=== PATIENT | male | born 1950 ===

== ENCOUNTER 2024-08-17 08:29 | Outpatient (AMB) | payer MEDICARE, OTHER, SELFPAY ==
--- OUTSIDE RECORDS SUMMARY | 2024-08-17 08:39 | XMS_ITS ---
Author Organization [facility] Address [address] [place] [address] Care Team Providers Care Ict Security Specialist Name Role Phone David Escalante Primary Care Provider Unavailab Anival Jeff Unavailable [phone] Arianna Morris Unavailable [phone] Allergies Allergen (clinical drug ingredient) Drug/Non Drug Allergy documented on EMR Reaction Allergy Type Onset Date Status Adhesive Tape rash Drug Allergy Act joann REASON FOR VISIT At Risk Footcare Medications Medication SIG (Take, Route, Frequency, Duration) Notes Start Date End Date Status Zocor Active Norvasc 10 MG 1 tablet Orally Once a day Active Lipitor 20 MG 1 tablet Orally Once a day for 30 day(s) Active Extra Depth Diabetic Shoes with 3 Pair Custom heat-molded multi-density innersoles for 1 year Dx: 04/18/2021 Active ZyrTEC Active Glucophage 850 mg 2x Active Cozaar 100 MG 1 tablet Orally Once a day Active Ciclopirox Olamine 0.77 % 1 application to affected area Externally Twice a day to effected areas on feet for 30 days Active Extra Depth Orthopedic Shoes (1 Pair) with Customized Heat Molded Multidensity Innersoles (3 Pair) as directed Dx: NIDDM/Polyneuropathy (E11.42), Hammertoe Foot Deformity (M20.41,M20.42), Preulcerative Skin Lesion(s) (L85.1 02/06/2016 Not-Taking Glucotrol 5 mg Active Amoxicillin Not-Taki ng glipiZIDE 5 MG 1 tablet Orally Once a day Not-Taking Vitamin B12 Not-Taki ng OneTouch Ultra Test In Vitro for 90 Not-Taking Vitamin D3 Not-Takin g Chlorhexidine Gluconate 0.12 % Mouth/Throat for 30 Not- Taking Aspirin Not-Taking Simvastatin 20 MG Oral for 90 Not-Taking metFORMIN HCl 850 MG Oral for 90 Not-Taking Losartan Potassium 100 MG Oral for 90 Not-Taking Hydrophor 12.5 mg? Not-Taking amLODIPine Besylate 10 MG Oral for 90 Not-Taking Social History Tobacco Use: Social History Observation Description Date Details (start date - stop date) Never Smoker NA - NA Tobacco Use/Smoking Question Answer Notes Are you a: nonsmoker Additional Findings: Tobacco Non-User Current no n-smoker Alcohol Screen Question Answer Notes Did you have a drink contain ing alcohol in the past year? Yes How often did you have a dri nk containing alcohol in the past year? 2 to 3 times a week (3 points) Points 3 Interpretation Negative Tobacco use other than smoking: Question Answer Notes Are you an other tobacco user? No Vital Signs Height 5ft 8in in 06/28/2024 Weight 195 lbs 06/28/2024 BMI 29.65 kg/m2 06/28/2024 Procedures Procedure Date Ordered Date Performed Result Body Sit e 84957-MDVLYWQ NAIL, 6 OR MORE 06/28/2024 N/A 74110-TUPW SKIN LESIONS, 2 TO 4 06/28/2024 N/A Encounters Encounter Location Date Provider Diagnosis [facility] [address] [address] 06/28/2024 Arianna Morris Type 2 diabetes mellitus with diabetic polyneuropathy E11.42 and Tinea unguium B35.1 Assessments Encounter Date Diagnosis (ICD Code) Assessment Notes Treatment Notes Treatment Clinical Notes Section Notes 06/28/2024 Type 2 diabetes mellitus with diabetic polyneuropathy (ICD-10 - E11.42) 06/28/2024 Tinea unguium (ICD-10 - B35.1) Plan Of Treatment Pending Test Test Name Order Date [id number]-[id number] NAIL, 6 OR MORE 06/28/2024 08197-QPRE SKIN LESIONS, 2 TO 4 06/28/20 24 Next Appt Details Follow Up: 3 Months, Reason: Provider Name:Be Petty , 09/29/2024 02:00:00 PM, [address], [address], [place], [address], Provider Name:Arianna Claire maher, 12/27/2024 02:00:00 PM, [address], [address], [place], [address], Procedure Notes * Category Sub-Category Detail Notes Debride Nail 6-10 Nail debridement Performance o f this nail treatment by a nonprofessional would put this patients foot and overall health at risk. Therefore, debridement to affected nail(s), as described in exam, was performed extensively to reduce/remove overall nail length, girth, thickness, subungual debris, and necrotic tissue, by manual and/or electrical means through the use of a nail nipper and/or dremel-type mash grinder, to a more viable healthy nail plate or bed tissue 6-10 nails in total. Silver nitrate was used for any petechial bleeding as necessary. Definitive antifungal treatment options, both pharmaceutical and surgical, have been reviewed and discussed with the patient. The patient solely prefers the use of intermittent/as needed professional debridement services for their nail condition and understands the need for additional periodic treatments to maintain effectiveness in symptomatic relief - 08256 Keratoma Treatment Parring or Cutting o f Benign Hyperkeratotic Lesion(s) (-56) 2-4 Lesions - The Benign hyperkeratotic lesions, ( 2_ ) in total, locations as stated and described in exam, were pared, and/or cut utilizing a sterile 15 blade, tissue nippers, and/or power dremel instrumentation - 15976 Progress Notes * Harrison FERNANDES SDOB:1950 (73 yo M)Acc No.[id number]:06/28/2024 Progress Note Patient:?Harrison FERNANDES S Provider:?Arianna Morris DPM :1950???Age:73 Y???Sex:Male Yousuf e:06/28/2024 Address[address] [place], [place] [id number] Pcp:David Escalante Subjective: * Chief Complaints: * ???At Risk Footcare * HPI: ???At Risk footcare:?Pt States Last PCP Visit:?Date?02/12/2024 * ROS:?General/Constitutional:?Nausea?denies.?Vomiting?denies.?Hunger Thirst?denies.?Loss appetite?denies.?Chills?denies.?Fatigue?denies.?Fever?denies.?Night Sweats?denies.?Unexplained weight loss?denies.?Unexplained weight gain?denies.?HEENTM:?Dentures?denies.?Dizziness?denies.?Glasses/contacts?admits.?Retinopathy?de nies.?Blurred/double vision?denies.?TMJ?denies.?Discharge/drainage?denies.?Implants?denies.?Sore throat?denies.?Dental implants?admits.?Hard of hearing ?admits.?Difficulty chewing/swallowing/speaking?denies.?Nose bleeds?denies.?Sore mouth?denies.?Respiratory:?On Oxygen?denies.?Pneumonia/pleurisy?denies.?Bronchitis?denies.?Emphysema?denies.?C oughing?denies.?Cough blood?denies.?Shortness of breath?denies.?Wheezing?denies.?Cardiovascular:?Pacemaker?denies.?MVP?denies.?WPW?denies.?CHF?denies.?Heart attack?denies.?Septal defect?denies.?Rapid beat?denies.?Chest pain ?denies.?Atrial Fib.?denies.?Murmur/Palpitations?denies.?Gastrointestinal:?Hemorrhoids?admits.?Stomach/Abdominal pain?denies.?Dark blood stool?denies.?Irritable bowel ?denies.?Constipation?denies.?Diarrhea?denies.?Hematology:?Swelling?admits.?Clots?denies.?Varicose Veins?denies.?Bruising?denies.?Bleeding problem?denies.?Genitourinary:?Blood urine?denies.?Frequent/Painfu/urination/bladder control?denies.?Kidney stones?denies.?Infection (UTI)?denies.?Nephropathy?denies.?sex trans dis (STD)?denies.?Prostate?denies.?Musculoskeletal:?Hammertoes?denies.?Bunions?admits.?Back Pain?denies.?Muscle Cramps/ Resting?denies.?Muscle cramps / walking?denies.?Generalized aches and pains?admits.?Weakness?denies.?Integ.:?Selby?denies.?Scars?denies.?Corns/calluses?admits.?Ingrown nails?admits.?Painful nails?denies.?Open Sores?denies.?Rashes?admits.?Neurologic:?Difficulty sleeping?admits.?Brain disorder?denies.?Numbness?denies.?Balance trouble?denies.?Confusion?denies.?Fainting/blackouts?denies.?Tingling?denies.?Tr emors?denies.? * Medical History:? * Surgical History:?shawnee gudino er 2008cataract surgery 12/17, 12/31 * Hospitalization/Major Diagno stic Procedure:?No Hospitalization History. * Family History:?Mother: dece ased, mom has poor circulation.?Father: , diagnosed with Diabetic - NIDDM, Unspecified essential hypertension.?Daughter(s): alive.?Spouse: alive.?2 daughter(s) . .? * Social History:?Tobacco Use:?Tobacco Use/Smoking?Are you a:?nonsmoker ?Additional Findings: Tobacco Non-User?Current non-smoker ?Tobacco use other than smoking?Are you an other tobacco user??No ???Drugs/Alcohol:?Drugs?Have you used drugs other than those for medical reasons in the past 12 months??No ?Alcohol Screen?Did you have a drink containing alcohol in the past year??Yes ?How often did you have a drink containing alcohol in the past year??2 to 3 times a week (3 points) ?Points?3 ?Interpretation?Negative ???Miscellaneous:?Caffeine: yes, frequency:, 2-3 cups per day. ?Children: yes, two. ?Exercise: no. ?Marital status: . ?Occupation: [employer], [employer]. * Medications:?TakingCiclopiro x Olamine 0.77 % Cream 1 application to affected area Externally Twice a day to effected areas on feet Cozaar 100 MG Tablet 1 tablet Orally Once a day Glucophage , Notes to Pharmacist: 850 mg 2xGlucotrol , Notes to Pharmacist: 5 mgLipitor 20 MG Tablet 1 tablet Orally Once a day Norvasc 10 MG Tablet 1 tablet Orally Once a day ZyrTEC Extra Depth Diabetic Shoes with 3 Pair Custom heat-molded multi-density innersoles for 1 year Dx: Zocor Taking Ciclopirox Olamine 0.77 % Cream 1 application to affected area Externally Twice a day to effected areas on feet Taking Cozaar 100 MG Tablet 1 tablet Orally Once a day Taking Glucophage , Notes to Pharmacist: 850 mg 2xTaking Glucotrol , Notes to Pharmacist: 5 mgTaking Lipitor 20 MG Tablet 1 tablet Orally Once a day Taking Norvasc 10 MG Tablet 1 tablet Orally Once a day Taking ZyrTEC Taking Extra Depth Diabetic Shoes with 3 Pair Custom heat-molded multi-density innersoles for 1 year Dx: Taking Zocor Not-Taking/PRNHydrophor , Notes to Pharmacist: 12.5 mg?amLODIPine Besylate 10 MG Tablet Oral Aspirin Chlorhexidine Gluconate 0.12 % Solution Mouth/Throat Losartan Potassium 100 MG Tablet Oral metFORMIN HCl 850 MG Tablet Oral Simvastatin 20 MG Tablet Oral Vitamin B12 Vitamin D3 OneTouch Ultra Test Strip In Vitro glipiZIDE 5 MG Tablet 1 tablet Orally Once a day Amoxicillin Extra Depth Orthopedic Shoes (1 Pair) with Customized Heat Molded Multidensity Innersoles (3 Pair) as directed Dx: NIDDM/Polyneuropathy (E11.42), Hammertoe Foot Deformity (M20.41,M20.42), Preulcerative Skin Lesion(s) (L85.1 Medication List reviewed and reconciled with the patientNot-Taking/PRN Hydrophor , Notes to Pharmacist: 12.5 mg?Not-Taking/PRN amLODIPine Besylate 10 MG Tablet Oral Not-Taking/PRN Aspirin Not-Taking/PRN Chlorhexidine Gluconate 0.12 % Solution Mouth/Throat Not-Taking/PRN Losartan Potassium 100 MG Tablet Oral Not-Taking/PRN metFORMIN HCl 850 MG Tablet Oral Not-Taking/PRN Simvastatin 20 MG Tablet Oral Not-Taking/PRN Vitamin B12 Not-Taking/PRN Vitamin D3 Not-Taking/PRN OneTouch Ultra Test Strip In Vitro Not-Taking/PRN glipiZIDE 5 MG Tablet 1 tablet Orally Once a day Not-Taking/PRN Amoxicillin Not-Taking/PRN Extra Depth Orthopedic Shoes (1 Pair) with Customized Heat Molded Multidensity Innersoles (3 Pair) as directed Dx: NIDDM/Polyneuropathy (E11.42), Hammertoe Foot Deformity (M20.41,M20.42), Preulcerative Skin Lesion(s) (L85.1 Medication List reviewed and reconciled with the patient * Allergies:?Adhesive Tape: ra kovacs[Allergies Verified] Objective: * Vitals:?Ht: 5ft 8in, Wt:195, BMI:29.65, Shoe size: 10.5W, Ht-cm: 172.72 cm, Wt- k.45 kg. * ???Past Orders: ???Lab:HEMOGLOBIN A1C (GLYCO HEMOGLOBIN) (Order Date - 03/29/2024) (Collection Date & Time - 03/29/2024 11:52 AM) ? Value Reference Range ?HEMOGLOBIN A1C % (HH) 7.1 * Examination: ???Ophthalmology Referral: ?DIABETES EYE EXAM?Neurological: ?SENSORY:? Neurological exam demonstrates, reduced light touch sensation, reduced sharp/dull pin prick discrimination , B/L, 5.07 monofilament test performed at plantar aspects of 5 varied sites per foot shows sensation, reduced , B/L.?Nails: ?NAILS are:?Elongated, overgrown, dystrophic, lytic, greater than 3mm thick, discolored and friable with crumbly malodorous subungual debris, with dull to no pain on palpation due to neuropathy, 1-5 B/L.?Dermatologic: ?SKIN FINDINGS:?Skin exam reveals Keratotic lesion(s) located at plantar heels B/L.?Vascular: ?DP PULSES(B):?2/4, B/L.?PT PULSES(B):? 2/4, B/L.?CAPILLARY FILL TIME:?3 secs. per digit. B/L.?TROPHIC CONDITION-TEXTURE/ELASTICITY/TURGOR/HAIR GROWTH(B):?normal, B/L.?TEMPERTURE GRADIENT(C):?normal, B/L.?PIGMENTATION:?normal, B/L.?EDEMA(C):?absent, B/L.?TELANGECTASIA:?absent, B/L.?Orthopedic: ?MUSCLE STRENGTH:?5/5 all groups in a symmetrical fashion, B/L.?General Examination: ?GENERAL APPEARANCE:?Reveals a pleasant, alert, well nourished, well- developed, well hydrated individual, who demonstrates proper attention to hygiene/body habitus, and is in no acute distress, Pt serves as own historian for office visit today.?ORIENTED:?person, place, and time.? Assessment: * Assessment: 1.?Type 2 diabetes mellitus with diabetic polyneuropathy - E11.42 (Primary)???2.?Tinea unguium - B35.1??? Plan: * Treatment: * Procedures:?Debride Nail 6-10:?Nail debridement?Performance of this nail treatment by a nonprofessional would put this patients foot and overall health at risk. Therefore, debridement to affected nail(s), as described in exam, was performed extensively to reduce/remove overall nail length, girth, thickness, subungual debris, and necrotic tissue, by manual and/or electrical means through the use of a nail nipper and/or dremel-type mash grinder, to a more viable healthy nail plate or bed tissue 6-10 nails in total. Silver nitrate was used for any petechial bleeding as necessary. Definitive antifungal treatment options, both pharmaceutical and surgical, have been reviewed and discussed with the patient. The patient solely prefers the use of intermittent/as needed professional debridement services for their nail condition and understands the need for additional periodic treatments to maintain effectiveness in symptomatic relief - 81965.?Keratoma Treatment:?Parring or Cutting of Benign Hyperkeratotic Lesion(s)?(-56) 2-4 Lesions - The Benign hyperkeratotic lesions, ( 2_ ) in total, locations as stated and described in exam, were pared, and/or cut utilizing a sterile 15 blade, tissue nippers, and/or power dremel instrumentation - 28686.? * Procedure Codes:?70762 DEBRI DE NAIL, 6 OR MORE, Modifiers: XS 05973 TRIM SKIN LESIONS, 2 TO 4, Modifiers: XS * Follow Up:?3 Months * Images: * Sign off status: Completed true * Provider:?Arianna Morris DPM Date:?1 08/29/2023 Generated for Lizett danielson/Torrie/Ana on:?08/17/2024 08:39 AM EST History and Physical Notes * HPI (History of Present Illness) Category Sub-Category Detail Notes Category Not es At Risk footcare Pt States Last PCP Visit: Date: 4 Examination Category Sub-Category Detail Notes Category Not es Neurological SENSORY: Neurological exa m demonstrates, reduced light touch sensation, reduced sharp/dull pin prick discrimination , B/L, 5.07 monofilament test performed at plantar aspects of 5 varied sites per foot shows sensation, reduced , B/L Dermatologic SKIN FINDINGS: Skin exam reveal s Keratotic lesion(s) located at plantar heels B/L Orthopedic MUSCLE STRENGTH: 5/5 all groups in a symmetrical fashion, B/L General Examination GENERAL APPEARANCE: Reveals a pleasant, alert, well nourished, well-developed, well hydrated individual, who demonstrates proper attention to hygiene/body habitus, and is in no acute distress, Pt serves as own historian for office visit today ORIENTED: person, place, and t yoan Ophthalmology Referral DIABETES EYE EXAM Diabetic Reti nopathy Screening:: No 01/2022 Vascular DP PULSES (B): 2/4, B/L PT PULSES (B): 2/4, B/L CAPILLARY FILL TIME: 3 secs. per digit. B/L TEMPERTURE GRADIENT (C): normal, B/L TROPHIC CONDITION-TEXTURE/ELASTICITY/TUR GOR/HAIR GROWTH (B): normal, B/L EDEMA (C): absent, B/L TELANGECTASIA: absent, B/L PIGMENTATION: normal, B/L Nails NAILS are: Elongated, overg rown, dystrophic, lytic, greater than 3mm thick, discolored and friable with crumbly malodorous subungual debris, with dull to no pain on palpation due to neuropathy, 1-5 B/L
--- OUTSIDE RECORDS SUMMARY | 2024-08-17 08:40 | XMS_ITS ---
Author Organization [facility] Address [address] [address] Care Team Providers Care Outdoor Fitness Trainer Name Role Phone David Escalante Primary Care Provider Unavailab Anival Jeff Unavailable [phone] Allergies Allergen (clinical drug ingredient) Drug/Non Drug Allergy documented on EMR Reaction Allergy Type Onset Date Status Adhesive Tape rash Drug Allergy Act joann REASON FOR VISIT Painful nail(s) aggrevated by shoes and causing difficulty standing/walking. Medications Medication SIG (Take, Route, Frequency, Duration) Notes Start Date End Date Status Extra Depth Orthopedic Shoes (1 Pair) with Customized Heat Molded Multidensity Innersoles (3 Pair) as directed Dx: NIDDM/Polyneuropathy (E11.42), Hammertoe Foot Deformity (M20.41,M20.42), Preulcerative Skin Lesion(s) (L85.1 02/06/2016 Not-Taking Amoxicillin Not-Taki ng glipiZIDE 5 MG 1 tablet Orally Once a day Not-Taking Ciclopirox Olamine 0.77 % 1 application to affected area Externally Twice a day to effected areas on feet for 30 days Active OneTouch Ultra Test In Vitro for 90 Not-Taking metFORMIN HCl 850 MG Oral for 90 Not-Taking Zocor Not-Taking Vitamin D3 Not-Takin g Vitamin B12 Not-Taki ng Simvastatin 20 MG Oral for 90 Not-Taking amLODIPine Besylate 10 MG Oral for 90 Not-Taking Hydrophor 12.5 mg? Not-Taking Losartan Potassium 100 MG Oral for 90 Not-Taking Chlorhexidine Gluconate 0.12 % Mouth/Throat for 30 Not- Taking Aspirin Not-Taking Norvasc 10 MG 1 tablet Orally Once a day Active Lipitor 20 MG 1 tablet Orally Once a day for 30 day(s) Active Glucotrol 5 mg Active Extra Depth Diabetic Shoes with 3 Pair Custom heat-molded multi-density innersoles for 1 year Dx: 04/18/2021 Active ZyrTEC Active Glucophage 850 mg 2x Active Cozaar 100 MG 1 tablet Orally Once a day Active Social History Tobacco Use: Social History Observation [...] tobacco user? No Vital Signs Height 5ft 8 in in 01/05/2024 Weight 198 lbs 01/05/2024 BMI 30.1 kg/m2 01/05/2024 Encounters Encounter Location Date Provider Diagnosis [facility] [address] [address] 01/05/2024 Anival Vasques Type 2 diabetes mellitus with diabetic polyneuropathy E11.42 ; Tinea unguium B35.1 ; Skin disease L98.9 ; Pain in right toe(s) M79.674 ; Pain in left toe(s) M79.675 and Tinea pedis B35.3 Assessments Encounter Date Diagnosis (ICD Code) Assessment Notes Treatment Notes Treatment Clinical Notes Section Notes 01/05/2024 Type 2 diabetes mellitus with diabetic polyneuropathy (ICD-10 - E11.42) 01/05/2024 Tinea unguium (ICD-10 - B35.1) 01/05/2024 Skin disease (ICD-10 - L98.9) 01/05/2024 Pain in right toe(s) (ICD-10 - M79.674) 01/05/2024 Pain in left toe(s) (ICD-10 - M79.675) 01/05/2024 Tinea pedis (ICD-10 - B35.3) Plan Of Treatment Medication Medication Name Sig Start Date Stop Date Notes Ciclopirox Olamine 0.77 % 1 application to affected area Externally Twice a day to effected areas on feet for 30 days Next Appt Details Follow Up: 3 Months, Reason: Provider Name:Be Petty , 09/29/2024 02:00:00 PM, [address], [address] [facility], [place], [address], Provider Name:Arianna Rangel nika, 12/27/2024 02:00:00 PM, [address] , [address] [facility], [place], [address], Procedure Notes * Category Sub-Category Detail Notes Debride Nail 6-10 Nail debridement Nail debridem ent performed extensively to reduce/remove overall nail length and girth, subungual debris, and necrotic tissue, by manual and electrical means with use of a nail nipper and/or dremel, to more viable healthy nail plate or bed tissue 6-10. Silver nitrate used for any petechial bleeding as necessary. Patient chooses, no pharmaceutical tx (59825) Keratoma Treatment Parring or Cutting o f Benign Hyperkeratotic Lesion(s) 13890 (2-4 Lesions) - The Benign hyperkeratotic lesions, as described above were pared, and/or cut utilizing a sterile #15 blade, tissue nippers, and/or dremel Progress Notes * Harrison FERNANDES SDOB:1950 (73 yo M)Acc No.[id number]:01/05/2024 Progress Note Patient:?Harrison Fernandes S Provider:?Anival Vasques DPM :1950???Age:73 Y???Sex:Male Yousuf e:01/05/2024 Address:[address] [place] [address] Len Lozada [id number] Pcp:Richar Terry MD Subjective: * Chief Complaints: * ??? Painful nail(s) aggrevat ed by shoes and causing difficulty standing/walking. * HPI: ???Skin problems:?Nature:?tender.?Location:?B/L .?Misc:?pt works for [employer].?Painful Nails:?Pt States Last PCP Visit:?Date:?02/11/2023 ???Foot Pain:?Nature:?numbness.?Location:?B/L, Forefoot.? * ROS:?General/Constitutional:?Nausea?denies.?Vomiting?denies.?Hunger Thirst?denies.?Loss appetite?denies.?Chills?denies.?Fatigue?denies.?Fever?denies.?Night Sweats?denies.?Unexplained weight loss?denies.?Unexplained [...] 2-3 cups per day. ?Children: yes, two. ?no Exercise. ?Marital status: . ?Occupation: [employer], [employer]. * Medications:?TakingCiclopiro x Olamine 0.77 % Cream 1 application to affected area Externally Twice a day to effected areas on feetCozaar 100 MG Tablet 1 tablet Orally Once a dayGlucophage , Notes: 850 mg 2xGlucotrol , Notes: 5 mgLipitor 20 MG Tablet 1 tablet Orally Once a dayNorvasc 10 MG Tablet 1 tablet Orally Once a dayZyrTEC Extra Depth Diabetic Shoes with 3 Pair Custom heat-molded multi-density innersoles for 1 year Dx:Taking Ciclopirox Olamine 0.77 % Cream 1 application to affected area Externally Twice a day to effected areas on feetTaking Cozaar 100 MG Tablet 1 tablet Orally Once a dayTaking Glucophage , Notes: 850 mg 2xTaking Glucotrol , Notes: 5 mgTaking Lipitor 20 MG Tablet 1 tablet Orally Once a dayTaking Norvasc 10 MG Tablet 1 tablet Orally Once a dayTaking ZyrTEC Taking Extra Depth Diabetic Shoes with 3 Pair Custom heat-molded multi-density innersoles for 1 year Dx:Not- Taking/PRNHydrophor , Notes: 12.5 mg?amLODIPine Besylate 10 MG Tablet Oral Aspirin Chlorhexidine Gluconate 0.12 % Solution Mouth/Throat Losartan Potassium 100 MG Tablet Oral metFORMIN HCl 850 MG Tablet Oral Simvastatin 20 MG Tablet Oral Vitamin B12 Vitamin D3 Zocor OneTouch Ultra Test Strip In Vitro glipiZIDE 5 MG Tablet 1 tablet Orally Once a dayAmoxicillin Extra Depth Orthopedic Shoes (1 Pair) with Customized Heat Molded Multidensity Innersoles (3 Pair) as directed Dx: NIDDM/Polyneuropathy (E11.42), Hammertoe Foot Deformity (M20.41,M20.42), Preulcerative Skin Lesion(s) (L85.1Medication List reviewed and reconciled with the patientNot-Taking/PRN Hydrophor , Notes: 12.5 mg?Not-Taking/PRN amLODIPine Besylate 10 MG Tablet Oral Not-Taking/PRN Aspirin Not-Taking/PRN Chlorhexidine Gluconate 0.12 % Solution Mouth/Throat Not- Taking/PRN Losartan Potassium 100 MG Tablet Oral Not-Taking/PRN metFORMIN HCl 850 MG Tablet Oral Not-Taking/PRN Simvastatin 20 MG Tablet Oral Not-Taking/PRN Vitamin B12 Not-Taking/PRN Vitamin D3 Not-Taking/PRN Zocor Not-Taking/PRN OneTouch Ultra Test Strip In Vitro Not-Taking/PRN glipiZIDE 5 MG Tablet 1 tablet Orally Once a dayNot-Taking/PRN Amoxicillin Not-Taking/PRN Extra Depth Orthopedic Shoes (1 Pair) with Customized Heat Molded Multidensity Innersoles (3 Pair) as directed Dx: NIDDM/Polyneuropathy (E11.42), Hammertoe Foot Deformity (M20.41,M20.42), Preulcerative Skin Lesion(s) (L85.1Medication List reviewed and reconciled with the patient * Allergies:?Adhesive Tape: ra kovacs[Allergies Verified] Objective: * Vitals:?Ht: 5ft 8 in, Wt:198 , BMI:30.1, Shoe size: 10.5W, Ht-cm: 172.72 cm, Wt- k.81 kg. * ???Past Orders: ???Lab:HEMOGLOBIN A1C (GLYCO HEMOGLOBIN) (Order Date - 08/18/2023) (Collection Date - 08/18/2023) ? Value Reference Range ?HEMOGLOBIN A1C % (HH) 7 * Examination: ???Ophthalmology Referral: ?DIABETES EYE EXAM?Neurological: ?SENSORY:? Neurological exam demonstrates, reduced vibration sensation, 5.07 monofilament test performed at plantar aspects of 5 varied sites per foot shows sensation, reduced , B/L, at Forefoot, at Midfoot--right foot more advanced sensory loss than left.?Vascular: ?DP PULSES:? 2/4, B/L.?PT PULSES:? 2/4, B/L.?CAPILLARY FILL TIME:?3 secs. per digit. B/L.?SKIN TEMPERTURE GRADIENT OF THE LOWER EXTERMITIES:?normal, B/L.?HAIR GROWTH/TEXTURE/ELASTICITY/TURGOR:?normal, B/L.?PIGMENTATION:?normal, B/L.?EDEMA:?absent, B/L.?TELANGECTASIA:?absent, B/L.?Nails: ?NAILS are:?Elongated, overgrown, dystrophic, lytic, greater than 3mm thick, discolored and friable with crumbly malodorous subungual debris, with dull to no pain on palpation due to neuropathy, 1-5 B/L.?Dermatologic: ?SKIN FINDINGS:? Skin exam reveals Keratotic lesion(s) located at, Plantar, Heel(s), [place], Skin shows sign(s) of resolving rash plantar clinton midfoot.?General Examination: ?GENERAL APPEARANCE:?pleasant, alert, well nourished, well developed, well hydrated, with good attention to hygene/body habitus, and in no acute distress.?ORIENTED:?person,place, and time.?Orthopedic: ?MUSCLE STRENGTH:?5/5 all groups in a symmetrical fashion , B/L.? Assessment: * Assessment: 1.?Type 2 diabetes mellitus with diabetic polyneuropathy - E11.42?2.?Tinea unguium - B35.1?3.?Skin disease - L98.9 (Primary)?4.?Pain in right toe(s) - M79.674?5.?Pain in left toe(s) - M79.675?6.?Tinea pedis - B35.3? Plan: * Treatment: * Procedures:?Debride Nail 6-10:?Nail debridement?Nail debridement performed extensively to reduce/remove overall nail length and girth, subungual debris, and necrotic tissue, by manual and electrical means with use of a nail nipper and/or dremel, to more viable healthy nail plate or bed tissue 6-10. Silver nitrate used for any petechial bleeding as necessary. Patient chooses, no pharmaceutical tx (47064).?Keratoma Treatment:?Parring or Cutting of Benign Hyperkeratotic Lesion(s)?12048 (2-4 Lesions) - The Benign hyperkeratotic lesions, as described above were pared, and/or cut utilizing a sterile #15 blade, tissue nippers, and/or dremel.? * Procedure Codes:?25932 DEBRI DE NAIL, 6 OR MORE, Modifiers: XS 99652 TRIM SKIN LESIONS, 2 TO 4, Modifiers: XS * Follow Up:?3 Months * Images: * Sign off status: Completed true * Provider:?Anival Vasques DPM Date:? 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 Foot Pain Nature: numbness Location: B/L, Forefoot Examination Category Sub-Category Detail Notes Category Not es Neurological SENSORY: Neurological exa m demonstrates, reduced vibration sensation, 5.07 monofilament test performed at plantar aspects of 5 varied sites per foot shows sensation, reduced , B/L, at Forefoot, at Midfoot--right foot more advanced sensory loss than left Dermatologic SKIN FINDINGS: Skin exam reveal s Keratotic lesion(s) located at, Plantar, Heel(s), [place], Skin shows sign(s) of resolving rash plantar clinton midfoot Orthopedic MUSCLE STRENGTH: 5/5 all groups in a symmetrical fashion , B/L General Examination GENERAL APPEARANCE: pleasant , alert, well nourished, well developed, well hydrated, with good attention to hygene/body habitus, and in no acute distress ORIENTED: person,place, and ti me Ophthalmology Referral DIABETES EYE EXAM Diabetic Reti [...]
--- OUTSIDE RECORDS SUMMARY | 2024-08-17 08:40 | XMS_ITS ---
Author Organization [facility] Address [address] [place] [address] Care Team Providers Care Hatch Tender Name Role Phone David Escalante Primary Care Provider Unavailab Anival Jeff Unavailable [phone] Allergies Allergen (clinical drug ingredient) Drug/Non Drug Allergy documented on EMR Reaction Allergy Type Onset Date Status Adhesive Tape rash Drug Allergy Act joann REASON FOR VISIT Painful nail(s) aggrevated by shoes and causing difficulty standing/walking. Medications Medication SIG (Take, Route, Frequency, Duration) Notes Start Date End Date Status Amoxicillin Not-Taki ng Extra Depth Orthopedic Shoes (1 Pair) with Customized Heat Molded Multidensity Innersoles (3 Pair) as directed Dx: NIDDM/Polyneuropathy (E11.42), Hammertoe Foot Deformity (M20.41,M20.42), Preulcerative Skin Lesion(s) (L85.1 02/06/2016 Not-Taking Cozaar 100 MG 1 tablet Orally Once a day Active Glucophage 850 mg 2x Active Glucotrol 5 mg Active Zocor Active OneTouch Ultra Test In Vitro for 90 Not-Taking glipiZIDE 5 MG 1 tablet Orally Once a day Not-Taking Vitamin B12 Not-Taki ng Vitamin D3 Not-Takin g Aspirin Not-Taking Chlorhexidine Gluconate 0.12 % Mouth/Throat for 30 Not- Taking Losartan Potassium 100 MG Oral for 90 Not-Taking metFORMIN HCl 850 MG Oral for 90 Not-Taking Simvastatin 20 MG Oral for 90 Not-Taking ZyrTEC Active Extra Depth Diabetic Shoes with 3 Pair Custom heat-molded multi-density innersoles for 1 year Dx: 04/18/2021 Active Hydrophor 12.5 mg? Not-Taking amLODIPine Besylate 10 MG Oral for 90 Not-Taking Ciclopirox Olamine 0.77 % 1 application to affected area Externally Twice a day to effected areas on feet for 30 days Active Lipitor 20 MG 1 tablet Orally Once a day for 30 day(s) Active Norvasc 10 MG 1 tablet Orally [...] Vital Signs Height 5ft 8 in in 04/05/2024 Weight 198 lbs 04/05/2024 BMI 30.1 kg/m2 04/05/2024 Encounters Encounter Location Date Provider Diagnosis [facility] [address] [address] 04/05/2024 Anival Vasques Type 2 diabetes mellitus with diabetic polyneuropathy E11.42 ; Tinea unguium B35.1 ; Skin disease L98.9 ; Pain in right toe(s) M79.674 ; Pain in left toe(s) M79.675 and Tinea pedis B35.3 Assessments Encounter Date Diagnosis (ICD Code) Assessment Notes Treatment Notes Treatment Clinical Notes Section Notes 04/05/2024 Type 2 diabetes mellitus with diabetic polyneuropathy (ICD-10 - E11.42) 04/05/2024 Tinea unguium (ICD-10 - B35.1) 04/05/2024 Skin disease (ICD-10 - L98.9) 04/05/2024 Pain in right toe(s) (ICD-10 - M79.674) 04/05/2024 Pain in left toe(s) (ICD-10 - M79.675) 04/05/2024 Tinea pedis (ICD-10 - B35.3) Plan Of Treatment Medication Medication Name Sig Start Date Stop Date Notes Ciclopirox Olamine 0.77 % 1 application to affected area Externally Twice a day to effected areas on feet for 30 days Next Appt Details Follow Up: 3 Months, Reason: Provider Name:Be Petty , 09/29/2024 02:00:00 PM, [address] [facility], [address] [facility], [place], [address], Provider Name:Arianna Rangel nika, 12/27/2024 02:00:00 PM, [address] [facility], [address] [facility], [place], [address], Procedure Notes * Category Sub-Category Detail Notes [...] as necessary. Patient chooses, no pharmaceutical tx (21181) Keratoma Treatment Parring or Cutting o f Benign Hyperkeratotic Lesion(s) 42042 (2-4 Lesions) - The Benign hyperkeratotic lesions, as described above were pared, and/or cut utilizing a sterile #15 blade, tissue nippers, and/or dremel Progress Notes * Harrison FERNANDES SDOB:1950 (73 yo M)Acc No.[id number]:04/05/2024 Progress Note Patient:?Harrison Fernandes S Provider:?Anival Vasques DPM :1950???Age:73 Y???Sex:Male Yousuf e:04/05/2024 [id number] Pcp:David Escalante Subjective: * Chief Complaints: * ??? Painful [...] two. ?no Exercise. ?Marital status: . ?Occupation: [employer], [employer]. * Medications:?TakingCiclopiro x Olamine 0.77 % Cream [...] Custom heat-molded multi-density innersoles for 1 year Dx:Zocor Taking Ciclopirox Olamine 0.77 % Cream 1 [...] heat-molded multi-density innersoles for 1 year Dx:Taking Zocor Not-Taking/PRNHydrophor , Notes: 12.5 mg?amLODIPine Besylate 10 MG [...] Allergies:?Adhesive Tape: ra kovacs[Allergies Verified] Objective: * Vitals:?Ht:5ft 8 in, Wt:198, BMI:30.1, Shoe size:10.5 W, Ht-cm: 172.72 cm, Wt- k.81 kg. * ???Past Orders: ???Lab:HEMOGLOBIN A1C (GLYCO HEMOGLOBIN) (Order Date - 03/29/2024) (Collection Date - 03/29/2024) ? Value Reference Range ?HEMOGLOBIN A1C % [...] as necessary. Patient chooses, no pharmaceutical tx (81717).?Keratoma Treatment:?Parring or Cutting of Benign Hyperkeratotic Lesion(s)?43096 (2-4 Lesions) - The Benign hyperkeratotic lesions, as described above were pared, and/or cut utilizing a sterile #15 blade, tissue nippers, and/or dremel.? * Procedure Codes:?58414 DEBRI DE NAIL, 6 OR MORE, Modifiers: XS 52918 TRIM SKIN LESIONS, 2 TO 4, Modifiers: [...]
--- OUTSIDE RECORDS SUMMARY | 2024-08-17 08:40 | XMS_ITS | Patient Health Record ---
Author Organization [facility] Address [address] [facility] [place] [address] Care Team Providers Care Medical Instrument Cable Fabricator Name Role Phone David Escalante Primary Care Provider Unavailab Anival Jeff Unavailable [phone] Arianna Morris Unavailable [phone] Allergies Allergen (clinical drug ingredient) Drug/Non Drug Allergy documented on EMR Reaction Allergy Type Onset Date Status Adhesive Tape rash Drug Allergy Act joann Results Component Value Reference Range Notes HEMOGLOBIN A1C (GLYCOHEMOGLO BIN) Reviewed date:10/06/2023 11:57:02 AM Interpretation: Performing Lab: Notes/Report: HEMOGLOBIN A1C % (HH) 7 HEMOGLOBIN A1C (GLYCOHEMOGLO BIN) Reviewed date:10/06/2023 11:58:42 AM Interpretation: Performing Lab: Notes/Report: HEMOGLOBIN A1C % (HH) 7 HEMOGLOBIN A1C (GLYCOHEMOGLO BIN) Reviewed date:04/05/2024 11:53:58 AM Interpretation: Performing Lab: Notes/Report: HEMOGLOBIN A1C % (HH) 7.1 Reason For Referral No Information Medications Medication SIG (Take, Route, Frequency, Duration) Notes Start Date End Date Status Glucophage 850 mg 2x Active Cozaar 100 MG 1 tablet Orally Once a day Active Chlorhexidine Gluconate 0.12 % Mouth/Throat for 30 Not- Taking Hydrophor 12.5 mg? Not-Taking Amoxicillin Not-Taki ng Zocor Active glipiZIDE 5 MG 1 tablet Orally Once a day Not-Taking Ciclopirox Olamine 0.77 % 1 application to affected area Externally Twice a day to effected areas on feet for 30 days Active Aspirin Not-Taking amLODIPine Besylate 10 MG Oral for 90 Not-Taking Extra Depth Orthopedic Shoes (1 Pair) with Customized Heat Molded Multidensity Innersoles (3 Pair) as directed Dx: NIDDM/Polyneuropathy (E11.42), Hammertoe Foot Deformity (M20.41,M20.42), Preulcerative Skin Lesion(s) (L85.1 02/06/2016 Not-Taking Norvasc 10 MG 1 tablet Orally Once a day Active Vitamin B12 Not-Taki ng Lipitor 20 MG 1 tablet Orally Once a day for 30 day(s) Active Simvastatin 20 MG Oral for 90 Not-Taking Extra Depth Diabetic Shoes with 3 Pair Custom heat-molded multi-density innersoles for 1 year Dx: 04/18/2021 Active OneTouch Ultra Test In Vitro for 90 Not-Taking ZyrTEC Active Vitamin D3 Not-Takin g Glucotrol 5 mg Active metFORMIN HCl 850 MG Oral for 90 Not-Taking Losartan Potassium 100 MG Oral for 90 Not-Taking Immunizations Vaccine Route Administration Date Status Comme nts COVID-19 Moderna Vaccine Unknown 10/20/2020 Administere d 1st 09/22/2020 Influenza Unknown 03/21/2021 Administered Social History Tobacco Use: Social History Observation [...] Are you an other tobacco user? No Section Notes: eye exam 10/2014 flu shot 07/24/2015 eye exam 10/2014 flu shot 07/24/2015 eye exam 10/2014 flu shot 07/24/2015 eye exam 10/2014 flu shot 07/24/2015 Problems Problem Type SNOMED Code ICD Code Onset Dates Problem Status W/U Status Risk Notes Problem Polyneuropathy due to type 2 diabetes mellitus (523289117) Type 2 diabetes mellitus with diabetic polyneuropathy (E11.42) Active confirmed Problem Polyneuropathy due to diabetes mellitus type I (784935776) Type 1 diabetes mellitus with diabetic polyneuropathy (E10.42) Active confirmed Problem 42175000 Type 2 diabetes mellitus with polyneuropathy (E11.42) Active confirmed Vital Signs Height 5ft 8in in 06/28/2024 Weight 195 lbs 06/28/2024 BMI 29.65 kg/m2 06/28/2024 Procedures Procedure Date Ordered Date Performed Result Body Sit e 55181-VWFXZUS NAIL, 6 OR MORE 06/28/2024 N/A 24387-SHZG SKIN LESIONS, 2 TO 4 06/28/2024 N/A Encounters Encounter Location Date Provider Diagnosis [address] [address] 10/06/2023 Anival Vasques Type 2 diabetes mellitus with diabetic polyneuropathy E11.42 ; Tinea unguium B35.1 ; Skin disease L98.9 ; Pain in right toe(s) M79.674 ; Pain in left toe(s) M79.675 and Tinea pedis B35.[address] [address] 01/05/2024 Anival Vasques Type 2 diabetes mellitus with diabetic polyneuropathy E11.42 ; Tinea unguium B35.1 ; Skin disease L98.9 ; Pain in right toe(s) M79.674 ; Pain in left toe(s) M79.675 and Tinea pedis B35.[address] [address] 04/05/2024 Anival Vasques Type 2 diabetes mellitus with diabetic polyneuropathy E11.42 ; Tinea unguium B35.1 ; Skin disease L98.9 ; Pain in right toe(s) M79.674 ; Pain in left toe(s) M79.675 and Tinea pedis B35.[address] [address] 06/28/2024 Arianna Morris Type 2 diabetes mellitus with diabetic polyneuropathy E11.42 and Tinea unguium B35.1 Assessments Encounter Date Diagnosis (ICD Code) Assessment Notes Treatment Notes Treatment Clinical Notes Section Notes 10/06/2023 Type 2 diabetes mellitus with diabetic polyneuropathy (ICD-10 - E11.42) 01/05/2024 Type 2 diabetes mellitus with diabetic polyneuropathy (ICD-10 - E11.42) 04/05/2024 Type 2 diabetes mellitus with diabetic polyneuropathy (ICD-10 - E11.42) 06/28/2024 Type 2 diabetes mellitus with diabetic polyneuropathy (ICD-10 - E11.42) 06/28/2024 Tinea unguium (ICD-10 - B35.1) 04/05/2024 Tinea unguium (ICD-10 - B35.1) 01/05/2024 Tinea unguium (ICD-10 - B35.1) 10/06/2023 Tinea unguium (ICD-10 - B35.1) 10/06/2023 Skin disease (ICD-10 - L98.9) 04/05/2024 Skin disease (ICD-10 - L98.9) 01/05/2024 Skin disease (ICD-10 - L98.9) 04/05/2024 Pain in right toe(s) (ICD-10 - M79.674) 01/05/2024 Pain in right toe(s) (ICD-10 - M79.674) 10/06/2023 Pain in right toe(s) (ICD-10 - M79.674) 10/06/2023 Pain in left toe(s) (ICD-10 - M79.675) 01/05/2024 Pain in left toe(s) (ICD-10 - M79.675) 04/05/2024 Pain in left toe(s) (ICD-10 - M79.675) 04/05/2024 Tinea pedis (ICD-10 - B35.3) 01/05/2024 Tinea pedis (ICD-10 - B35.3) 10/06/2023 Tinea pedis (ICD-10 - B35.3) Plan Of Treatment Pending Test Test Name Order Date 61578-DLNRNMF NAIL, 6 OR MORE 06/28/2024 06095-Urwrsxsp Plate 02/06/2016 35506 I&D ABSCESS- SIMPLE,SINGLE 016 48909 I&D ABSCESS- SIMPLE,SINGLE 01/11/2 016 63360-GOAT SKIN LESIONS, 2 TO 4 04/18/20 21 89403-NCQM SKIN LESIONS, 2 TO 4 08/09/19 22 99347-RIVB SKIN LESIONS, 2 TO 4 06/28/20 24 Q9432-QHTWHYMT DYSTROPHIC NAILS ANY # Q8128-MKMJWJGW DYSTROPHIC NAILS ANY # X3850-PQFRIXNP DYSTROPHIC NAILS ANY # 90595-MOPIVVHX OF HEMATOMA/FLUID 016 25225-RNWNEUCU OF HEMATOMA/FLUID 016 83447-ZDZOASXN OF HEMATOMA/FLUID 016 Next Appt Details Provider Name:Be Petty , 09/29/2024 02:00:00 PM, [address] [facility], [place] [address], [place], [address], Provider Name:Arianna Claire maher, 12/27/2024 02:00:00 PM, [address] [facility], [place] [address], [place], [address], Insurance Providers Payer Name Payer Address Payer Phone Subscriber Number Group Number Insured Name Patient Relationship to Insured Coverage Start Date Coverage End Date Medicare [employer] [address] [place] [address] [id number] Harrison Fernandes Self - patient is the insured [facility] [address] [place] [address] [id number] Harrison Fernandes Self - patient is the insured Medical (General) History Medical History History ICD Code Back,Hip,and Knee pain Abnormal liver function type II diabetes Measles Mumps Chicken pox Cataracts Gall bladder problems/removal Numbness Sleep apnea/CPAP Surgical History Surgery Date(Month/Year) gall bladder 2008 cataract surgery 12/17, 12/31
--- NOTE | 2024-08-17 08:59 | MHC.OFFVIS ---
Intake Visit Reasons: Neuropathy, Hip Pain (Ref for Qutenza) Intake Note: Pain today 0/10 Clinic Physician Required: No Accompanied by: Self / Same As Patient Allergies adhesive tape Allergy (Unknown, Verified 08/17/24 09:14) Rash HPI Comments Details: Harrison is a very pleasant 73-year-old male who presents to the office today for evaluation management bilateral peripheral neuropathy Patient reports he has been suffering with this for approximately 3 years. He is not insulin diabetic, managed with oral medications in is attempting lifestyle changes to try to improve his A1c. Most recent A1c was 8.1. He endorses burning, tingling, numbness of both feet stopping below the ankles. Currently under care Podiatry. Denies any, rashes, lesions to either foot He has been taking ibuprofen with minimal improvement Pain today is rated as a 0/10. Is worse with walking and will improve with rest. States he is able to sleep at night comfortably this does not affect his sleeping. In terms of muscle damage condition is described as burning, numbness, tingling Pain is negatively impacting patient's enjoyment of life, general activity, walking, recreational activities Denies implantable devices, pacemaker or defibrillator Denies current use of anticoagulants Denies current use of nicotine, tobacco or illicit substances. Endorses social EtOH use. [facility] Medical History (Updated 08/17/24 @ 10:10 by Carly Woodard APRN, [place]) Hyperlipidemia Left hip pain Obstructive sleep apnea Hearing loss Hypertension Diabetes mellitus Surgical History (Updated 08/17/24 @ 09:13 by Dulce Maria Jacob) History of cataract surgery Hx of cholecystectomy Social History (Updated 08/17/24 @ 09:08 by Dulce Maria Jacob) Alcohol intake: current Alcohol intake frequency: a few times a week Alcohol type: beer Patient Tobacco Use Status: Never used Tobacco Review of Systems Const All systems reviewed & are unremarkable except as noted in HPI and below Physical Exam General: awake, alert, oriented. Answers questions appropriately. Fully engaged in examination. Skin: warm, dry, intact . no wounds, rashes or lesions noted to feet HEENT: Normocephalic. Hearing intact. Cardiac: External chest normal in appearance. Respiratory: No cough, audible wheezing or stridor. Abdomen: without gross distension. MS: No obvious swelling or deformities. Able to transition from sit to stand unassisted. Ambulates with bilaterally normal heel strike and toe off Decreased light touch and sharp sensation noted to both feet Neurological: Oriented to person, place, time and situation. Thought process intact. No gait abnormalities appreciated. Psychiatric: Appropriate mood and affect. Good judgment and insight. Assessment & Plan Assessment & Plan (1) Diabetic peripheral neuropathy: Code(s): E11.42 - Type 2 diabetes mellitus with diabetic polyneuropathy Category: Medical Plan Harrison presented to the office today for evaluation and management of his painful diabetic neuropathy. Discussed options for treatment with an office topical capsaicin application. Patient was given pamphlets for review. Will submit PA for Qutenza topical application. Patient advised on procedure including preparation and EMLA application prior to appointment. He is aware treatment is done in office and he will be here for 30minutes during each visit. All questions and concerns have been answered and patient agrees with the plan. Patient aware he will be called to schedule appointment for Qutenza pending insurance approval. Coding Level of Care Code New Pt Level 4 (82884) Complex EM visit Add On G2211 Diagnoses Diabetic peripheral neuropathy E11.42
== END 2024-08-17 09:47 | disposition home or self-care (01) ==
PROVIDERS: PCP Physician Assistant Medical; Referring Provider Physician Assistant Medical; Visit Provider Registered Nurse Emergency
DX: E11.42 Type 2 diabetes mellitus with diabetic polyneuropathy (principal)
CPT/HCPCS: 99204; G2211

== ENCOUNTER → 2024-08-17 08:29 | Outpatient (BNVA) | payer MEDICARE, OTHER, SELFPAY | PROVIDERS: PCP Physician Assistant Medical; Referring Provider Physician Assistant Medical; Visit Provider Registered Nurse Emergency | DX: E11.42 Type 2 diabetes mellitus with diabetic polyneuropathy (principal); Z79.84 Long term (current) use of oral hypoglycemic drugs | CPT/HCPCS: 99202 ==

== ENCOUNTER 2025-02-15 08:00 | Outpatient (AMB) | payer MEDICARE, OTHER, SELFPAY ==
--- OUTSIDE RECORDS SUMMARY | 2025-02-15 08:03 | XMS_ITS | Patient Health Record ---
Author Organization [facility] Address [address] [place] [address] Care Team Providers Care Housing Development Specialist Name Role Phone Blanquita Huff NP Primary Care Provider Humble Juárez [phone] Allergies Allergen (clinical drug ingredient) Drug/Non Drug Allergy documented on EMR Reaction Allergy Type Onset Date Status Band aids (uncoded) Unknown Allergy Active Reason For Referral No Information Medications Medication SIG (Take, Route, Frequency, Duration) Notes Start Date End Date Status Norvasc 10 MG 1 tablet Orally Once a day Active Cozaar 100 MG 1 tablet Orally Once a day Active metFORMIN HCl 850 MG 1 tablet with a mary l Orally Twice a day Active ZyrTEC Allergy 10 MG 1 tablet Orally Once a day Active Aspirin Adult Low Dose 81 MG 1 tablet Orally Once a day A ctive Zocor 20 MG 1 tablet in the even ing Orally Once a day Active glipiZIDE ER 2.5 MG 1 tablet Orally Once a day Active Coricidin HBP Congestion/Cough 10-200 MG 1 capsule as needed Orally/maximum strenth every 4 hrs Active Vitamin B-12 1000 MCG 1 tablet Orally Once a day Active Vitamin D3 1000 UNIT 1 capsule Orally On ce a day Active Immunizations Vaccine Route Administration Date Status Comme nts Flu vaccine no Preserv 3 and > Unknown 03/27/2015 Admin istered Problems Problem Type SNOMED Code ICD Code Onset Dates Problem Status W/U Status Risk Notes Problem [id number] Encounter for screening for malignant neoplasm of colon (Z12.11) Active confirmed Problem 756718914 History of adenomatous polyp of colon (Z86.010) Active confirmed Problem Screening for malignant neoplasm of rectum (940859595) Encounter for screening for malignant neoplasm of rectum (Z12.12) Active confirmed Problem 64019187 Preprocedural examination (Z01.818) Active confirmed Problem 295460839 Long-term use of aspirin therapy (Z79.82) Active confirmed Plan Of Treatment Future Test Test Name Order Date COLONOSCOPY 01/01/2016 Insurance Providers Payer Name Payer Address Payer Phone Subscriber Number Group Number Insured Name Patient Relationship to Insured Coverage Start Date Coverage End Date MEDICARE OF [place] [address] [place] [address] [id number] DOMINICK FERNANDES Self - patient is the insured [facility] [address] [place] [address] [id number] DOMINICK FERNANDES Self - patient is the insured Medical (General) History Medical History History ICD Code Hyperlipidemia Allergic rhinitis Sleep apnea--uses CPAP HTN NIDDM Hearing loss/hearing aids Depression Colonoscopy in 2007-small tubular adenom a removed--Dr. Herzog Denies LA,CVA,Lung disease,renal disease Surgical History Surgery Date(Month/Year) Lap [facility]Y at [facility] Deviated septum repair
--- OUTSIDE RECORDS SUMMARY | 2025-02-15 08:04 | XMS_ITS | Clinical Summary ---
Author Organization [facility] Address [address] [place] [address] Phone Care Team Providers Care Forklift Truck Operator Name Role Phone Georgina Doty MD Unavailable Unknown, Unknown Primary Care Provider Unavai lable Allergies Active Allergy Reactions Criticality Noted Date Comments Adhesive Rash Low 02/11/2023 Medications yfklwnnknwpuq-ON-lq etaminophen 2-15-500 mg Tab daily. Acti ve cetirizine (ZYRTEC) 10 mg Cap 1 tablet daily Active Medication-Free TextIndications:cpa p and supplies cpap and supplies Indications: cpap and supplies Active ciclopirox (CICLODAN) 0.77 % cream APPLY TO AFFECTED AREA ON FEET TWICE A DAY 2 Active atorvastatin (LIPITOR) 20 MG tabletIndications:M ixed hyperlipidemia TAKE 1 TABLET BY MOUTH EVERY DAY 90 tablet 3 3 Active glipiZIDE (GLUCOTROL XL) 5 MG 24 hr tabletIndications:T ype 2 diabetes mellitus without complications TAKE 1 TABLET BY MOUTH EVERY DAY 90 tablet 3 3 Active amLODIPine (NORVASC) 10 MG tabletIndications:E ssential hypertension TAKE 1 TABLET BY MOUTH EVERY DAY 90 tablet 3 3 Active losartan (COZAAR) 100 MG tabletIndications:E ssential hypertension TAKE 1 TABLET BY MOUTH EVERY DAY 90 tablet 3 3 Active hydroCHLOROthiazide (HYDRODIURIL) 12.5 MG tabletIndications:E ssential hypertension TAKE 1 TABLET BY MOUTH EVERY DAY 90 tablet 3 3 Active metFORMIN (GLUCOPHAGE) 850 MG tabletIndications:T ype 2 diabetes mellitus without complication, without long-term current use of insulin take 1 tablet by mouth twice a day with meals 180 tablet 4 Active Active Problems Problem Noted Date Diagnosed Date Venous stasis dermatitis of both lower extremiti es 02/11/2023 Polyneuropathy due to type 2 diabetes mellitus 0 03/19/2022 Neck pain 01/06/2018 Essential hypertension 06/03/2017 Mixed hyperlipidemia 06/03/2017 Obstructive sleep apnea syndrome 06/03/2017 Overweight 06/03/2017 Seasonal and perennial allergic rhinitis 017 Type 2 diabetes mellitus without complications 1 08/03/2016 Medial epicondylitis of left elbow 06/03/2017 Immunizations Immunization Administration Dates Next Due COVID-19 (Pre-05/18) Moderna Vaccine, mRNA, PF 10/20/2020,09/22/2020 Influenza High-Dose Quadriva lent Preservative Free IM 08/18/2023,08/14/2022,07/24/2021 Influenza High-Dose Trivalen t Preservative Free IM 05/07/2018,06/03/2017,07/24/2015 Influenza trivalent preserva tive free intradermal 05/12/2013 Pneumococcal conjugate PCV13 12/31/2016 Pneumococcal polysaccharide PPSV23 03/21/2021, Td (adult) 5 Lf Tetanus Toxo id, PF, Adsorbed 03/21/2021 Tdap 06/29/2009 Zoster live 12/04/2011 Family History Medical History Relation Comments Thyroid disease Daughter 1 No Known Problems Daughter 2 Diabetes mellitus Father CV disease Mother Osteoporosis Sister 1 Osteoporosis Sister 2 Relation Status Comments Daughter 1 Alive Daughter 2 Alive Father Mother Sister 1 Alive Sister 2 Alive Social History Tobacco Use Types Packs/Day Years Used Date Smoking Tobacco: Never Smokeless Tobacco: Never Alcohol Use Standard Drinks/Week Comments Yes 0 (1 standard drink = 0.6 oz pur e alcohol) 1, 2-4 x month Education Answer Date Recorded Are you interested in more education? Not on ward e 11/21/2022 Are you concerned about learning? Not on file 11/21/2022 No 11/21/2022 No 11/21/2022 Digital Access Answer Date Recorded No 12/22/2022 No 12/22/2022 Reliable internet access at home? Not on file 12/22/2022 Device with a working camera? Not on file Intimate Partner Violence Answer Date R ecorded Denied Basic Needs Not on file 08/18/2023 In the past 12 months have y ou been in a relationship with a person who hurts, threatens, or tries to control you? No 08/18/2023 Worried food would run out Not on file 08/18 In the past 12 months have y ou been in a relationship with a person who hurts, threatens, or tries to control you? No 08/18/2023 Sex and Gender Information Value Date Recorded Sex Assigned at Not on file Legal Sex Male 10:03 PM EDT Gender Identity Not on file Sexual Orientation Not on file Last Filed Vital Signs Vital Sign Reading Time Taken Comments Blood Pressure 140/74 08/18/2023 8:46 AM EST Pulse 67 08/18/2023 8:46 AM EST Temperature 36.8 C (98.3 F) 08/14/2022 8:12 AM EST Respiratory Rate 16 08/18/2023 8:46 AM EST Oxygen Saturation 98% 08/18/2023 8:46 AM EST Inhaled Oxygen Concentration - - Weight 93.5 kg (206 lb 3.2 oz) 08/18/2023 8:46 A M EST Height 172.7 cm (5' 7.99 ) 08/18/2023 8:46 AM ES T Body Mass Index 31.36 08/18/2023 8:46 AM EST Plan of Treatment Health Maintenance Due Date Last Done Comments COLOGUARD 1994 FIT TEST 1994 FOBT 1994 SIGMOIDOSCOPY 1994 VIRTUAL COLONOSCOPY 1994 ZOSTER VACCINES (2 of 3) 01/29/2012 12/04/2011 DIABETIC EYE EXAM 05/31/2021 05/31/2020, , 05/26/2019 HEMOGLOBIN A1C 11/17/2023 08/18/2023, 0703/2023, 08/14/2022, Additional history exists BLOOD PRESSURE 02/16/2024 08/18/2023 COVID-19 VACCINE ( season) 2024 08/30/2022, 06/15/2021, 10/20/2020, Additional history exists CREATININE LEVEL 08/18/2024 08/18/2023, , 03/12/2022, Additional history exists DEPRESSION SCREENING 08/18/2024 08/18/2023 POTASSIUM LEVEL 08/18/2024 08/18/2023, 07/27, 03/12/2022, Additional history exists RSV VACCINE (1 - 1-dose 75+ series) 2024 COLONOSCOPY 04/09/2026 04/09/2016 COLORECTAL CANCER SCREENING 04/09/2026 Adult Td,Tdap Booster 03/21/2031 03/21/2021, 009 HEPATITIS C SCREENING Completed 03/14/2021 PNEUMOCOCCAL VACCINES (50+ years) Completed 03/21/2021, 12/31/2016, 04/03/2015 SMOKING STATUS SCREENING (Once After 26 Yrs) Completed 08/18/2023 HEPATITIS A VACCINES Aged Out No long er eligible based on patient's age to complete this topic HIB VACCINES Aged Out No longer eligi ble based on patient's age to complete this topic MENINGOCOCCAL VACCINES (ACWY) Aged Out No longer eligible based on patient's age to complete this topic MENINGOCOCCAL VACCINES (B) Aged Out N o longer eligible based on patient's age to complete this topic Medical Devices Not on file Procedures Procedure Name Priority Date/Time Associated Diagnosis Comments COMPREHENSIVE METABOLIC PANEL Routine 08/18/2023 9:35 AM EST Essential hypertension POCT HEMOGLOBIN A1C Routine 08/18/2023 9 :06 AM EST Type 2 diabetes mellitus without complication, without long-term current use of insulin HEPATITIS C ANTIBODY, QUALITATIVE Routine 03/14/2021 7:56 AM EDT Need for hepatitis C screening test HM DIABETES EYE EXAM FOR RESULT ENTRY ONLY Routine 05/31/2020 from Last 3 Months or Most Recently Relevant to Health Maintenance Results * (ABNORMAL) Comprehensive metabolic panel (08/18/2023 9:35 AM EST) SODIUM 139 133 - 146 mmol/L [facility] POTASSIUM 3.8 3.3 - 5.1 mmol/L [facility] Comment:Specimen slightly he molyzed, result may be falsely elevated. CHLORIDE 101 96 - 108 mmol/L [facility] CO2 24 21 - 35 mmol/L [facility] BUN 19 6 - 19 mg/dL [facility] CREATININE 0.70 0.5 - 1.5 mg/dL [facility] GLUCOSE 216(H) 70 - 99 mg/dL [facility] ALBUMIN 5.0(H) 3.9 - 4.8 g/dL [facility] TOTAL PROTEIN 8.2(H) 6.5 - 8.0 g/dL [facility] CALCIUM 10.0 8.4 - 10.3 mg/dL [facility] ALKALINE PHOSPHATASE 109 39 - 117 U/L [facility] TOTAL BILIRUBIN 1.3(H) 0.0 - 1.2 mg/dL [facility] AST 32 0 - 37 U/L [facility] ALT 31 0 - 40 U/L [facility] GLOBULIN 3.2 1 - 4.8 g/dL [facility] EGFR 97 >59 mL/min/1.7 3m2 [facility] Comment:Estimated glomerular filtration rate calculated using the CKD-EPI refit equation. ANION GAP 18 10 - 20 mmol/L [facility] Blood 08/18/2023 9:35 AM EST 08/18/2023 9:40 AM EST us Blanquita Huff NP LAB BLOOD ORDERABLES Final Resu lt Performing Organization Address City/State/[facility] Co de Phone Number [address] [address] * (ABNORMAL) POCT Hemoglobin A1c (08/18/2023 9:06 AM EST) Hemoglobin A1c 8.5(A) 4.2 - 5.8 % Other 08/18/2023 9:06 AM EST us Blanquita Huff NP POINT OF CARE TEST ORDERABLES F inal Result * Hepatitis C antibody, qualitative (03/14/2021 7:56 AM EDT) HCV NON-REACTIV E NON-REACTI VE [facility] Blood 03/14/2021 7:56 AM EDT 03/14/2021 7:59 AM EDT Blanquita Huff NP LAB BLOOD ORDERABLES Final Resu lt [facility] [address] [place] [address] * DIABETES EYE EXAM FOR RESULT ENTRY ONLY (05/31/2020) us Historical Provider HEALTH MAINTENANCE Edited Result - Final from Last 3 Months or Most Recently Relevant to Health Maintenance Insurance MEDICARE PART A & B [facility] MEDICARE SUPPLEMENT MEDICARE PART A & B [facility] MEDICARE SUPPLEMENT MEDICARE PART A & B [employer] MEDICARE SUPPLEMENT MEDICARE PART A & B [facility] MEDICARE SUPPLEMENT MEDICARE PART A & B [facility] MEDICARE SUPPLEMENT MEDICARE PART A & B [facility] MEDICARE SUPPLEMENT MEDICARE PART A & B Member Subscriber Plan / Payer ( fective 2014-Present) Name:Harrison Fernandes Member ID:[id number] Relation to Subscriber:Self Name:Harrison Fernandes Subscriber ID:[id number] Payer ID:[id number] Group ID:Not on file Type:Medicare Address: [address] [place] [id number] [place] [address] MEDICARE SUPPLEMENT MEDICARE PART A & B [facility] MEDICARE SUPPLEMENT MEDICARE PART A & B [facility] MEDICARE SUPPLEMENT Care Teams Forklift Truck Operator Relationship Specialty Start Date End Date Unknown, Unknown, PCP - General 10/21/23 Georgina Doty MD [address] [facility] [address] [place] [address] Ophthalmology 08/18/23 Additional Source Comments The information contained in this document represents components of the legal health record. It is not the complete legal health record.[facility]
--- OUTSIDE RECORDS SUMMARY | 2025-02-15 08:04 | XMS_ITS | Patient Health Record ---
[facility] Address [address] [facility] [place] [address] Care Team Providers Care Sales Account Coordinator Name Role Phone Ava David Primary Care Provider Unavailab Anival Jeff Unavailable [phone] Be Petty Unavailable [phone] Arianna Morris Unavailable [phone] Allergies Allergen (clinical drug ingredient) Drug/Non Drug Allergy documented on EMR Reaction Allergy Type Onset Date Status Adhesive Tape rash Drug Allergy Act joann Results Component Value Reference Range Notes HEMOGLOBIN A1C (GLYCOHEMOGLO BIN) Reviewed date:04/05/2024 11:53:58 AM Interpretation: Performing Lab: Notes/Report: HEMOGLOBIN A1C % (HH) 7.1 HEMOGLOBIN A1C (GLYCOHEMOGLO BIN) Reviewed date:09/29/2024 01:44:30 PM Interpretation: Performing Lab: Notes/Report: HEMOGLOBIN A1C % (HH) 7.3 HEMOGLOBIN A1C (GLYCOHEMOGLO BIN) Reviewed date:12/27/2024 01:55:56 PM Interpretation: Performing Lab: Notes/Report: HEMOGLOBIN A1C % (HH) 7.3 Reason For Referral No Information Medications Medication SIG (Take, Route, Frequency, Duration) Notes Start Date End Date Status Glucophage 850 mg 2x Active Losartan Potassium 100 MG Oral; Duration: 90 Not-Takin g Glucotrol 5 mg Active metFORMIN HCl 850 MG Oral; Duration: 90 Not-Taking Lipitor 20 MG 1 tablet Orally Once a day; Duration: 30 day(s) Active Hydrophor 12.5 mg? Not-Taking Amoxicillin Not-jake danielson Ozempic (1 MG/DOSE) Active amLODIPine Besylate 10 MG Oral; Duration: 90 Not- metFORMIN HCl 1000 MG 1 tablet with a me al Orally Once a day Active Aspirin Not-Taking Cozaar 100 MG 1 tablet Orally Once a day Active Chlorhexidine Gluconate 0.12 % Mouth/Throat; Duration: 30 Not-Taking Norvasc 10 MG 1 tablet Orally Once a day Active Vitamin B12 Not- ZyrTEC Active Vitamin D3 Not- Zocor Active OneTouch Ultra Test In Vitro; Duration: 90 Not-Taking Extra Depth Orthopedic Shoes (1 Pair) with Customized Heat Molded Multidensity Innersoles (3 Pair) as directed Dx: NIDDM/Polyneuropathy (E11.42), Hammertoe Foot Deformity (M20.41,M20.42), Preulcerative Skin Lesion(s) (L85.1 09/29/2024 Active glipiZIDE 5 MG 1 tablet Orally Once a day Not-Taking Lidocaine 5 % 1 patch remove after 12 hours Externally Once a day; Duration: 30 days 12/27/2024 Active Simvastatin 20 MG Oral; Duration: 90 Not-Taking Immunizations Vaccine Route Administration Date Status Comme nts Influenza Unknown 03/21/2021 Administered COVID-19 Moderna Vaccine Unknown 10/20/2020 Administere d 1st 09/22/2020 Social History Tobacco Use: Social History Observation Description Date Details (start date - stop date) Never Smoker NA - NA Alcohol Screen Question Answer Notes Did you have a drink contain ing alcohol in the past year? Yes How often did you have a dri nk containing alcohol in the past year? 2 to 3 times a week (3 points) Points 3 Interpretation Negative Tobacco use other than smoking: Question Answer Notes Are you an other tobacco user? No Tobacco Control (Standard) Question Answer Notes Tobacco use: Nonsmoker Additional Findings: Tobacco non-user Current no nsmoker Section Notes: eye exam 10/2014 flu shot 07/24/2015 eye exam 10/2014 flu shot 07/24/2015 eye exam 10/2014 flu shot 07/24/2015 eye exam 10/2014 flu shot 07/24/2015 Problems Problem Type SNOMED Code ICD Code Onset Dates Problem Status W/U Status Risk Notes Problem Acquired hammer toe of right foot (3263166516947632 ) Other hammer toe(s) (acquired), right foot (M20.41) Active confirmed Problem Acquired hammer toe of left foot (2717222756805824 ) Other hammer toe(s) (acquired), left foot (M20.42) Active confirmed Problem Polyneuropathy due to type 2 diabetes mellitus (403319211) Type 2 diabetes mellitus with diabetic polyneuropathy (E11.42) Active confirmed Problem Neuropathy (703384730) Neuropathy (G62.9) Active confirmed Vital Signs Blood pressure diastolic 88 mm Hg 09/29/2024 Height 5ft 8in in 12/27/2024 Blood pressure systolic 124 mm Hg 09/29/2024 Weight 190 lbs 12/27/2024 BMI 28.89 kg/m2 12/27/2024 Procedures Procedure Date Ordered Date Performed Result Body Sit e 99411-ZJIZKTX NAIL, 6 OR MORE 06/28/2024 N/A 94246-BWZN SKIN LESIONS, 2 TO 4 06/28/2024 N/A 97570-ENETROF NAIL, 6 OR MORE 09/29/2024 N/A 39836-OAGP SKIN LESIONS, 2 TO 4 09/29/2024 N/A Encounters Encounter Location Date Provider Diagnosis [address] [address] 04/05/2024 Anival Vasques Type 2 diabetes mellitus with diabetic polyneuropathy E11.42 ; Tinea unguium B35.1 ; Skin disease L98.9 ; Pain in right toe(s) M79.674 ; Pain in left toe(s) M79.675 and Tinea pedis B35.[address] [address] 06/28/2024 Arianna Morris Type 2 diabetes mellitus with diabetic polyneuropathy E11.42 and Tinea unguium B35.[address] [address] 09/29/2024 Be Petty Type 2 diabetes mellitus with diabetic polyneuropathy E11.42 ; Tinea unguium B35.1 ; Other hammer toe(s) (acquired), right foot M20.41 and Other hammer toe(s) (acquired), left foot M20.42 [facility] [address] [facility] [address] [place] [address] 12/27/2024 Arianna Morris Neuritis M79.2 ; Neuropathy G62.9 ; 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 ; Type 2 diabetes mellitus with diabetic polyneuropathy E11.42 and Tinea unguium B35.1 Assessments Encounter Date Diagnosis (ICD Code) Assessment Notes Treatment Notes Treatment Clinical Notes Section Notes 04/05/2024 Type 2 diabetes mellitus with diabetic polyneuropathy (ICD-10 - E11.42) 06/28/2024 Type 2 diabetes mellitus with diabetic polyneuropathy (ICD-10 - E11.42) 06/28/2024 Tinea unguium (ICD-10 - B35.1) 09/29/2024 Type 2 diabetes mellitus with diabetic polyneuropathy (ICD-10 - E11.42) 09/29/2024 Tinea unguium (ICD-10 - B35.1) 12/27/2024 Neuritis (ICD-10 - M79.2) 12/27/2024 Neuropathy (ICD-10 - G62.9) 12/27/2024 Neurapraxia of lower extremity (ICD-10 - S84.90XA) 09/29/2024 Other hammer toe(s) (acquired), right foot (ICD-10 - M20.41) Patient Educated with: DIABETIC FOOT CARE INSTRUCTIONS. pdf (DIABETIC FOOT CARE INSTRUCTIONS. pdf) 04/05/2024 Tinea unguium (ICD-10 - B35.1) 04/05/2024 Skin disease (ICD-10 - L98.9) 09/29/2024 Other hammer toe(s) (acquired), left foot (ICD-10 - M20.42) 12/27/2024 Type 2 diabetes mellitus with diabetic polyneuropathy (ICD-10 - E11.42) 04/05/2024 Pain in right toe(s) (ICD-10 - M79.674) 04/05/2024 Pain in left toe(s) (ICD-10 - M79.675) 12/27/2024 Tinea unguium (ICD-10 - B35.1) 04/05/2024 Tinea pedis (ICD-10 - B35.3) Plan Of Treatment Pending Test Test Name Order Date 25339-DRXXMZO NAIL, 6 OR MORE 06/28/2024 53629-PZNOYRD NAIL, 6 OR MORE 09/29/2024 15329-Cngqoebz Plate 02/06/2016 24458 I&D ABSCESS- SIMPLE,SINGLE 016 36234 I&D ABSCESS- SIMPLE,SINGLE 016 96334-JLYX SKIN LESIONS, 2 TO 4 04/18/20 21 33377-ZNLT SKIN LESIONS, 2 TO 4 08/09/19 22 10989-NSLD SKIN LESIONS, 2 TO 4 09/30/19 25 99796-IAMY SKIN LESIONS, 2 TO 4 06/28/20 24 N8529-KMZEFBMV DYSTROPHIC NAILS ANY # K4652-OBDSVYVL DYSTROPHIC NAILS ANY # I7687-XPEZNKJK DYSTROPHIC NAILS ANY # 80273-NTJTFCXR OF HEMATOMA/FLUID 016 06939-OJXWWDCH OF HEMATOMA/FLUID 016 02530-FNPRUHMJ OF HEMATOMA/FLUID 016 Next Appt Details Provider Name:Arianna Rangel nika, 04/04/2025 03:15:00 PM, [address] [facility] [facility] [address], [place], [address], Insurance Providers Payer Name Payer Address Payer Phone Subscriber Number Group Number Insured Name Patient Relationship to Insured Coverage Start Date Coverage End Date Medicare National [employer] [address] [place] [address] [id number] Harrison Fernandes Self - patient is the insured [place] [address] [place] [address] [id number] Harrison Fernandes Self - patient is the insured Medical (General) History Medical History History ICD Code Back,Hip,and Knee pain Abnormal liver function type II diabetes Measles Mumps Chicken pox Cataracts Gall bladder problems/removal Numbness Sleep apnea/CPAP Surgical History Surgery Date(Month/Year) gall bladder 2008 cataract surgery 12/17, 12/31
--- NOTE | 2025-02-15 08:22 | MHC.OFFVIS ---
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 The pain is intermittent and occurs primarily during walking, particularly when fdc through a mall, but resolves after resting for a few minutes. The patient reports that the pain is not present at the time of the visit. The patient also reports pain in the leg and knee, which was previously alleviated by acetaminophen but is currently absent. He has experienced a weight loss of 10 pounds since October, attributed to the use of Ozempic for diabetes management, resulting in improved glycemic control with an A1c of 5.5, down from 8. The patient mentions neck pain for which he visits a chiropractor every three weeks. He experiences shooting pain when reaching down, which may be related to his neck or possibly carpal tunnel syndrome. - Onset: Intermittent pain in the left hip, primarily during walking. - Quality: Pain resolves after resting for a few minutes. - Location: Left hip, with additional pain in the leg and knee previously. - Exacerbating factors: Walking, particularly fdc through a mall. - Relieving factors: Resting for a few minutes. - Affect: No current pain reported, but intermittent pain affects walking. - Analgesia: Previously used acetaminophen for leg and knee pain. - Adverse Effects: None reported from pain medications. - Activities of Daily Living: Pain affects walking and possibly reaching down. - Aberrant Drug Related Behaviors: None reported. [facility] Medical History (Updated 02/15/25 @ 09:49 by Carly Woodard APRN, HOUSEKEEPING ROOM ATTENDANT) Hyperlipidemia Left hip pain Obstructive sleep apnea Hearing loss Hypertension Diabetes mellitus Surgical History (Updated 08/17/24 @ 09:13 by Dulce Maria Jacob) History of cataract surgery Hx of cholecystectomy Social History (Updated 08/17/24 @ 09:08 by Dulce Maria Jacob) Alcohol intake: current Alcohol intake frequency: a few times a week Alcohol type: beer Patient Tobacco Use Status: Never used Tobacco Review of Systems Const Details: - Musculoskeletal: Reports intermittent left hip pain during walking. Denies current pain. - Endocrine: Reports weight loss of 10 pounds since October. Denies current issues with glycemic control. - Neurological: Reports neck pain and shooting pain when reaching down. Denies current pain in leg and knee. Physical Exam Exam Exam: General: awake, alert, oriented. Answers questions appropriately. Fully engaged in examination. Skin: warm, dry, intact . no wounds, rashes or lesions noted to feet HEENT: Normocephalic. Hearing intact. Cardiac: External chest normal in appearance. Respiratory: No cough, audible wheezing or stridor. Abdomen: without gross distension. MS: No obvious swelling or deformities. Able to transition from sit to stand unassisted. Ambulates with bilaterally normal heel strike and toe off Left hip: No pain with internal/external rotation. Nontender to palpation. Neurological: Oriented to person, place, time and situation. Thought process intact. No gait abnormalities appreciated. Psychiatric: Appropriate mood and affect. Good judgment and insight. Vital Signs: Last Vital Signs Pulse 72 02/15/25 08:24 Resp 16 02/15/25 08:24 BP 136/61 02/15/25 08:24 Pulse Ox 97 02/15/25 08:24 Oxygen Delivery Method Room Air 02/15/25 08:24 BMI result Body Mass Index 29.4 Assessment & Plan Assessment & Plan (1) Left hip pain: Code(s): M25.552 - Pain in left hip Category: Medical Plan The patient was advised to monitor the left hip pain and return if it worsens or persists. An x-ray of the hip was suggested if the pain continues, to evaluate for possible arthritis or other underlying conditions. Consideration for physical therapy or a steroid injection was discussed as potential interventions if the pain returns. Patient has an order for x-ray from his PCP, if the pain continues or worsens he is advised to complete this x-ray. The patient was encouraged to continue with the current diabetes management plan, given the significant improvement in A1c levels. The patient was also advised to maintain weight loss efforts, as this may contribute to reduced stress on the hip and overall health improvement. Patient was informed and verbally consented to the use of an ambient scribe for clinic note documentation during this visit. Patient Instructions: - Monitor left hip pain and return if it worsens or persists. - Consider getting an x-ray if hip pain continues. - Continue current diabetes management plan. - Maintain weight loss efforts. Coding Level of Care Code Est Pt Level 3 (32079) Complex EM visit Add On G2211 Diagnoses Left hip pain M25.552
[2025-02-15 08:24] VITALS: BP 136/61; PULSE 72; RESP 16; O2SAT 97; BMI 29.4
== END 2025-02-15 08:43 | disposition home or self-care (01) ==
LOC: HO.PMC 08:00
PROVIDERS: PCP Physician Assistant Medical; Visit Provider Registered Nurse Emergency
DX: M25.552 Pain in left hip (principal)
CPT/HCPCS: 99213; G2211

== ENCOUNTER → 2025-02-15 08:00 | Outpatient (BNVA) | payer MEDICARE, OTHER, SELFPAY | PROVIDERS: PCP Physician Assistant Medical; Visit Provider Registered Nurse Emergency | DX: M25.552 Pain in left hip (principal) | CPT/HCPCS: 99212 ==